=== PATIENT | male | born 1980 | race Caucasian/White ===

== ENCOUNTER 2018-11-11 01:23 | Emergency (ER) | payer OTHER ==
[~2018-11-11] VITALS: Ht 177.8 cm; Wt 73.9 kg
[2018-11-11] MEDS ORDERED: SEROQUEL200 MG (01:29)
[2018-11-11] MEDS ORDERED: CLONAZEPAM2 MG (01:29)
[2018-11-11] MEDS ORDERED: KETO10TA2 PO (06:31)
== END 2018-11-11 07:08 | disposition home or self-care (01) ==
LOC: ER 01:24
DX: S62.001A Unspecified fracture of navicular [scaphoid] bone of right wrist, initial encounter for closed fracture (principal); W18.39XA Other fall on same level, initial encounter; Y93.89 Activity, other specified; Y92.89 Other specified places as the place of occurrence of the external cause; Y99.8 Other external cause status